=== PATIENT | female | born 1975 | race Caucasian/White ===

== ENCOUNTER 2019-06-03 18:36 | Emergency (ER) | payer SELFPAY ==
[~2019-06-03] VITALS: Ht 160 cm; Wt 68.0 kg
[2019-06-03 20:01] VITALS: BP 131/74
[2019-06-03] MEDS ORDERED: DEXAMETHASONE 4 MG TABLET PO STA (21:10)
[2019-06-03] MEDS ORDERED: IPRATRPIUM/ALBUTEROL 0.5/2.5MG 3 ML NEBU. ONE (21:10)
--- NOTE | 2019-06-03 21:13 | PHYS DOC ---
Past Medical History Past Medical History: Other Additional Past Medical Histor: TUBAL Past Surgical History: Other Additional Past Surgical Histo: TUBAL Alcohol Use: None Drug Use: None Adult General Chief Complaint Chief Complaint: COUGH HPI HPI Patient is a 44 year old female who presents with cough, runny nose, congestion, sore throat, hot and cold chills at home have been ongoing for sev eral days. The patient states she's been trying to take Robitussin at home however that has not been helping. Denies pain except when she coughs. Review of Systems Review of Systems Constitutional: Denies fever or chills [] Eyes: Denies change in visual acuity, redness, or eye pain [] HENT: Reports nasal congestion and sore throat [] Respiratory: Reports cough and shortness of breath [] Cardiovascular: No additional information not addressed in HPI [] GI: Denies abdominal pain, nausea, vomiting, bloody stools or diarrhea [] : Denies dysuria or hematuria [] Musculoskeletal: Denies back pain or joint pain [] Integument: Denies rash or skin lesions [] Neurologic: Denies headache, focal weakness or sensory changes [] Endocrine: Denies polyuria or polydipsia [] Complete systems were reviewed and found to be within normal limits, except as documented in this note. Current Medications Current Medications Current Medications Medications (Trade) Dose Ordered Sig/Marva Start Time Stop Time Status Last Admin Dose Admin Albuterol/ Ipratropium (Duoneb) 3 ml STK-MED ONCE 06/03/19 21:10 06/03/19 21:10 DC Dexamethasone (Decadron) 10 mg 1X STAT 06/03/19 21:10 06/03/19 21:12 DC 06/03/19 21:19 10 MG Allergies Allergies Allergies Coded Allergies Type Severity Reaction Last Updated Verified No Known Drug Allergies 06/03/19 No Physical Exam Physical Exam Constitutional: Well developed, well nourished, no acute distress, non-toxic appearance. [] HENT: Normocephalic, atraumatic, bilateral external ears normal, oropharynx moist, no oral exudates, nose normal. [] Eyes: PERRLA, EOMI, conjunctiva normal, no discharge. [] Neck: Normal range of motion, no tenderness, supple, no stridor. [] Cardiovascular:Heart rate regular rhythm, no murmur [] Lungs & Thorax: Bilateral breath sounds have scattered wheezing and rhonchi bilaterally. Abdomen: Bowel sounds normal, soft, no tenderness, no masses, no pulsatile masses. [] Skin: Warm, dry, no erythema, no rash. [] Back: No tenderness, no CVA tenderness. [] Extremities: No tenderness, no cyanosis, no clubbing, ROM intact, no edema. [] Neurologic: Alert and oriented X 3, normal motor function, normal sensory function, no focal deficits noted. [] Psychologic: Affect normal, judgement normal, mood normal. [] Current Patient Data Vital Signs Vital Signs Date Time Temp Pulse Resp B/P (MAP) Pulse Ox O2 Delivery O2 Flow Rate FiO2 06/03/19 21:13 96 Room Air 06/03/19 20:01 98.7 113 22 131/74 (93) 98.7 Lab Values Laboratory Tests Test 06/03/19 21:20 Influenza Type A Antigen Negative (NEGATIVE) Influenza Type B Antigen Negative (NEGATIVE) EKG EKG [] Radiology/Procedures Radiology/Procedures X-ray interpreted by Dr. Edwards Lower Lobe consolidation R lung.[] Course & Med Decision Making Course & Med Decision Making Pertinent Labs and Imaging studies reviewed. (See chart for details) Will get Chest x-ray, flu test, decadron, and breathing treatment. Flu test is negative. Patient states she feels better after breathing treatment. Chest x-ray shows pneumonia. Will treat with Doxycycline. Dragon Disclaimer Dragon Disclaimer This electronic medical record was generated, in whole or in part, using a voice recognition dictation system. Departure Departure Impression: Primary Impression: Pneumonia Disposition: 01 HOME, SELF-CARE Condition: STABLE Referrals: NO PCP (PCP) Patient Instructions: Pneumonia, Adult Additional Instructions: Thank you for visiting [facility] We appreciate you trusting us with your care. If any additional problems come up don't hesitate to return to visit us. Please follow up with your primary care provider so they can plan additional care if needed and know about the problem that you had. If symptoms worsen come back to the Emergency Department. Any concerning symptoms that start such as chest pain, shortness of air, weakness or numbness on one side of the body, running high fevers or any other concerning symptoms return to the ER. You have been prescribed an antibiotic today to help fight your infection. Please take all of the antibiotic as directed. If after 48 hours the infection is not improving, please return for more care. If the infection worsens, return to ER for additional care. Scripts Doxycycline Hyclate (DOXYCYCLINE HYCLATE) 100 Mg Capsule 1 CAP PO BID for 7 Days, #14 CAP Prov: ROCKY MCCONNELL APRN 06/03/19 Problem Qualifiers Primary Impression: Pneumonia Pneumonia type: due to unspecified organism Laterality: right Lung location: lower lobe of lung Qualified Codes: J18.9 - Pneumonia, unspecified organism ROCKY MCCONNELL APRN Jun 03, 2019 21:13
[2019-06-03] MEDS ORDERED: IPRATRPIUM/ALBUTEROL 0.5/2.5MG 3 ML NEBU. NEB ONE (21:15)
[2019-06-03 21:51] LABS: INFLUENZA A PATIENT NEGATIVE (NEGATIVE); INFLUENZA B PATIENT NEGATIVE (NEGATIVE)
[2019-06-03] MEDS ORDERED: DOXY100C2 PO (22:18)
--- NOTE | 2019-06-03 22:25 | RAD ---
Study: CHEST PA LATERAL Indication: Cough, fever and congestion. Comparison: None. Findings: Infectious infiltrate at the right infrahilar region. Bronchial wall thickening more noticeable on the right. No pleural effusion or pneumothorax. Normal size of the cardiomediastinal silhouette. Impression: Infectious infiltrate involving the right infrahilar region. Background bronchial wall thickening. Electronically signed by: AZALEA WILL MD (06/03/2019 10:22 PM) [facility]
== END 2019-06-03 22:30 | disposition home or self-care (01) ==
LOC: ER 18:36
DX: J18.9 Pneumonia, unspecified organism (principal)
CPT/HCPCS: 71046; 87804; 94640; 99285; J7620; J8540